=== PATIENT | female | born 1970 | race Caucasian/White ===

== ENCOUNTER 2025-01-07 15:04 | Outpatient (AMB) | payer MEDICARE, SELFPAY ==
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
--- OUTSIDE RECORDS SUMMARY | 2025-01-07 18:13 | XMS_ITS | Clinical Summary ---
Author Organization [facility] Address [address] [place] [address] [address] [place] [address] Care Team Providers Care Upper Cutter Out Name Role Phone Unavailable Primary Care Provider Unavailabl e Allergies Active Allergy Reactions Criticality Noted Date Comments Gramineae Pollens 12/06/2023 Iodinated Contrast Media Hives 12/06/2023 Penicillins Hives 12/06/2023 Medications busPIRone (Buspar) 30 MG tablet Take 30 mg by mouth. 3 Active Fluticasone-Sa lmeterol (Advair Diskus) 250-50 MCG/ACT aerosol powder Inhale. 3 Active famotidine (Pepcid) 40 MG tablet Take 40 mg by mouth Once per day. 4 Active EPINEPHrine (Epipen) 0.3 MG/0.3ML injection syringe INJECT 0.3 MG INTRAMUSCULAR ONCE NEEDED FOR ANAPHYLACTIC REACTION Active fluticasone (Flonase) 50 MCG/ACT nasal spray See Instructions, INSTILL 2 SPRAYS IN EACH NOSTRIL DAILY, # 48 mL, 1 Refills, Maintenance, 02/23/23 9:41:00 EDT, [facility] STORE [id number], 90, INSTILL 2 SPRAYS IN EACH NOSTRIL DAILY, 160, cm, 01/26/23 21:14:00 EDT, Height, 120.5, kg, 01/26/23 21:14:00 EDT, Dry... 3 Active Trelegy Ellipta 200-62.5-25 MCG/ACT aerosol powder INHALE 1 PUFF DAILY AT THE SAME TIME EVERY DAY 4 Active Emgality 120 MG/ML prefilled syringe 140 mg. 4 Active levalbuterol (Xopenex) 45 MCG/ACT inhaler 2 PUFFS INHALATION EVERY 6 HOURS NEEDED FOR WHEEZING/SHORTNES S OF BREATH Active loratadine (Claritin) 10 MG tablet Take 10 mg by mouth. 5 Active omeprazole (PriLOSEC) [address] capsule TAKE 3 CAPSULES BY MOUTH TWICE A DAY 4 Active busPIRone (Buspar) 10 MG tablet Take 20 mg by mouth 2 times daily. 4 Active albuterol 108 (90 Base) MCG/ACT inhaler Inhale 2 puffs every 6 (six) hours if needed for wheezing. Active Fluticasone Furoate-Vilant lisbet 200-25 MCG/ACT aerosol powder Inhale. Activ e ACETAMINOPHEN PO Take by mouth. 975 every 6 hours prn Active Melatonin 3 MG capsule Take by mouth. Activ e escitalopram (Lexapro) 20 MG tablet Take 20 mg by mouth Once per day. Active lamoTRIgine (LaMICtal) 25 MG tablet Take by mouth. Activ e Active Problems Problem Noted Date Diagnosed Date Morbid obesity 12/11/2024 Anxiety 03/19/2024 Binge-eating disorder, moderate 03/19/2024 Tachycardia 03/19/2024 Vitamin D deficiency 03/19/2024 Transaminitis 03/19/2024 Endometrial cancer 12/06/2023 Arthritis 12/06/2023 Learning disability 12/06/2023 Migraines 12/06/2023 Obstructive sleep apnea 12/06/2023 Asthma exacerbation 05/30/2005 Adjustment disorder with depressed mood 05/30/19 06 Seizure disorder 05/30/2005 Overview (12/11/2024): [facility] Neuro Encounters Date Type Department Care Team Description 12/11/2024 2:30 PM EDT Office Visit [facility]OM[facility] [address] [place] [phone] Genevieve Michelle, REENA Peripheral retinal degeneration (Primary Dx); Presbyopia of both eyes from Last 3 Months Social History Tobacco Use Types Packs/Day Years Used Date Smoking Tobacco: Former Cigarettes Tobacco Cessation:Counseling Given: Not Answered Comments Unknown Sex and Gender Information Value Date Recorded Sex Assigned at Female 12/04/2023 11:41 AM EDT Legal Sex Female 8:40 PM EDT Gender Identity Female 12/04/2023 11:41 AM EDT Sexual Orientation Choose not to disclose 2023 11:41 AM EDT Last Filed Vital Signs Vital Sign Reading Time Taken Comments Blood Pressure 110/72 12/06/2023 10:35 AM EDT Pulse - - Temperature 36.2 C (97.1 F) 12/06/2023 10:35 AM EDT Respiratory Rate - - Oxygen Saturation - - Inhaled Oxygen Concentration - - Weight - - Height - - Body Mass Index - - Plan of Treatment Upcoming Encounters Date Type Department Care Team (Late st Contact Info) Description 12/14/2025 8:30 AM EDT Office Visit [facility] [address] [place], [place] [phone] Genevieve Michelle, REENA [address] [place] [address] Health Maintenance Due Date Last Done Comments CT Colonography 1970 Colonoscopy 1970 Colorectal Cancer Screening 1970 Depression Screening 1970 FIT DNA/Cologuard 1970 FIT 1970 FOBT 1970 HIV Screening 1970 Lipid Panel 1970 SDOH Screening 1970 Sigmoidoscopy 1970 Disability Screening 1970 Alcohol/Substance Use Screening 1982 Hepatitis C Screening 1988 Hepatitis B Vaccines (1 of 3 - 19+ 3-dose series) 1989 Pap Smear 07/19/1991 Cervical Cancer Screening 2000 HPV/Cotest 2000 Mammogram 2010 COVID-19 Vaccine ( - 2023-2 5 season) 2024 Influenza Vaccine (#1) 2024 04/03/2023 Tobacco Screening 12/11/2025 12/11/2024 DTaP/Tdap/Td Vaccines (4 - T d or Tdap) 10/27/2030 10/27/2020, 10/27/2020, 05/12/2010 RSV Patients and Patients Aged 60 years or older (1 - 1-dose 75+ series) 2045 Zoster Vaccines Completed 01/05/2021, 11/03/2020 Pneumococcal Vaccine: [...] patient's age to complete this topic Meningococcal Vaccine Aged Out No mojgan gaudencio eligible based on patient's age to complete this topic RSV under 20 months Aged Out No longe r eligible based on patient's age to complete this topic Rotavirus Vaccines Aged Out No longer eligible based on patient's age to complete this topic Insurance [place] [address] [phone] [facility] MEDICARE [facility]
== END 2025-01-07 15:11 | disposition home or self-care (01) ==
LOC: HO.HMGAL 15:04
PROVIDERS: PCP Pediatrics; Visit Provider Registered Nurse Emergency
DX: J30.89 Other allergic rhinitis (principal)
CPT/HCPCS: 95117; 95165

== ENCOUNTER 2025-02-04 14:26 | Outpatient (AMB) | payer MEDICARE, MEDICAID, SELFPAY | END 2025-02-04 14:27 | disposition home or self-care (01) | LOC: HO.HMGAL 14:26 | PROVIDERS: PCP Internal Medicine; Visit Provider Registered Nurse Emergency | DX: J30.89 Other allergic rhinitis (principal) | CPT/HCPCS: 95117; 95165 ==

== ENCOUNTER 2025-03-16 13:50 | Outpatient (AMB) | payer MEDICARE, MEDICAID, SELFPAY | END 2025-03-16 13:50 | disposition home or self-care (01) | LOC: HO.HMGAL 13:50 | PROVIDERS: PCP Internal Medicine; Visit Provider Registered Nurse Emergency | DX: J30.89 Other allergic rhinitis (principal) | CPT/HCPCS: 95117; 95165 ==